=== PATIENT | female | born 1945 ===

== ENCOUNTER 2017-08-10 07:35 | Day surgery (SDC) | payer OTHER | END 2017-08-10 14:40 | disposition home or self-care (01) | LOC: AMB-ENDOS 07:35 | DX: K64.1 Second degree hemorrhoids (principal) ==

== ENCOUNTER 2018-08-02 08:15 | Day surgery (SDC) | payer OTHER | END 2018-08-02 14:35 | disposition home or self-care (01) | LOC: AMB-ENDOS 08:15 | DX: K29.50 Unspecified chronic gastritis without bleeding (principal) ==